=== PATIENT | male | born 1975 | race Caucasian/White ===

== ENCOUNTER 2024-05-30 06:19 | Observation (INO) | payer BC ==
[2024-05-24 14:00] VITALS: BMI 33.0
[2024-05-30] MEDS ORDERED: Thrombin 5000 UNITS/5 ML VIAL ONE (06:31)
[2024-05-30] MEDS ORDERED: Vancomycin 1 GM VIAL ONE (06:31)
[2024-05-30] MEDS ORDERED: PROPOFOL 20 ML ONE (06:53)
[2024-05-30] MEDS ORDERED: Lidocaine 1% PF 5 ML VIAL ONE (06:53)
[2024-05-30] MEDS ORDERED: fentaNYL PF 100 MCG/2 ML SYRINGE ONE (06:53)
[2024-05-30] MEDS ORDERED: Rocuronium Bromide 10 MG/ML (10ML VIAL) ONE (06:53)
[2024-05-30] MEDS ORDERED: CEFAZOLIN 2 GM VIAL ONE (07:15)
[2024-05-30] MEDS ORDERED: Sodium Chloride 0.9% 100 ML ONE (07:15)
[2024-05-30] MEDS ORDERED: Midazolam HCl 2 mg/2 ml Vial ONE (07:22)
[2024-05-30] MEDS ORDERED: Dexamethasone 20 MG/5 ML VIAL ONE (08:07)
[2024-05-30] MEDS ORDERED: ePHEDrine Sulfate 50 MG/10 ML VIAL ONE (08:18)
[2024-05-30] MEDS ORDERED: PHENYLEPHRINE-NS 100 MCG/ML 10 ML SYRINGE ONE (08:27)
[2024-05-30] MEDS ORDERED: PACU-Morphine 4MG/ML VIAL SLOW IVP PRN (08:48)
[2024-05-30] MEDS ORDERED: Promethazine HCl 25 MG/ML VIAL IM PRN (08:48)
[2024-05-30] MEDS ORDERED: Morphine Sulfate 2 MG/ML SYRINGE SLOW IVP PRN (08:48)
[2024-05-30] MEDS ORDERED: Ondansetron HCl/PF 4 MG/2 ML Vial IVP PRN (08:48)
[2024-05-30] MEDS ORDERED: HYDROmorphone 2 MG/ML VIAL SLOW IVP PRN (08:48)
[2024-05-30] MEDS ORDERED: Ondansetron PF 4 MG/2 ML Vial ONE (08:55)
[2024-05-30] MEDS ORDERED: SUGAMMADEX SODIUM 200 MG/2 ML VIAL ONE (09:00)
[2024-05-30] MEDS ORDERED: Lidocaine 2% PF 5 ML VIAL ONE (09:00)
[2024-05-30] MEDS ORDERED: HYDROmorphone 2 MG/ML VIAL ONE (09:04)
[2024-05-30] MEDS ORDERED: Milk Of Magnesia 30 ML UDCUP PO PRN (09:32)
[2024-05-30] MEDS ORDERED: Morphine 2 MG/ML VIAL SLOW IVP PRN (09:32)
[2024-05-30] MEDS ORDERED: diphenhydrAMINE 25 MG CAP PO PRN (09:32)
[2024-05-30] MEDS ORDERED: Acetaminophen 325 MG TAB PO PRN (09:32)
[2024-05-30] MEDS ORDERED: Ondansetron PF 4 MG/2 ML Vial IVP PRN (09:32)
[2024-05-30] MEDS ORDERED: traMADol HCl 50 MG TAB PO PRN (09:32)
[2024-05-30] MEDS ORDERED: hydrALAZINE 20 MG/ML VIAL SLOW IVP PRN (09:33)
[2024-05-30] MEDS ORDERED: Phenol 177 ML BOT PO PRN (09:33)
[2024-05-30] MEDS ORDERED: Diazepam 5 MG TAB PO PRN (09:33)
[2024-05-30] MEDS ORDERED: fentaNYL 50 mcg/mL 1 mL Vial ONE ×2 (10:06→10:25)
[2024-05-30] MEDS ORDERED: HYDROmorphone 0.5 MG/0.5 ML SYRINGE ONE (10:32)
[2024-05-30] MEDS: Sodium Chloride 0.9% 1,000 ML IV SCH (11:22)
[2024-05-30] MEDS: HYDROcodone/Acetaminophen 7.5/325 mg Tablet PO PRN (11:48)
[2024-05-30] MEDS: Polyvinyl Alcohol 1.4%/Povidone 0.6% Opth Drops EA EYE PRN (14:44)
[2024-05-30] MEDS: Acetaminophen/Codeine 30-300mg Tablet PO PRN (16:17)
[2024-05-30] MEDS: CEFAZOLIN 2 GM in Sodium Chloride 0.9% 100 ML IVPB SCH (16:18)
[2024-05-30] MEDS: Divalproex Sodium 250 MG (DR) TAB PO SCH (20:17)
[2024-05-30] MEDS: traZODone HCl 50 MG TAB PO SCH (20:17)
[2024-05-30] MEDS: Rosuvastatin 20 MG TAB PO SCH (20:17)
[2024-05-30] MEDS: tiZANidine HCl 4 MG TAB PO PRN (21:50)
[2024-05-30] MEDS: Benzocaine/Menthol 1 LOZ LOZ PO PRN (21:50)
[2024-05-31] MEDS ORDERED: Diazepam 5 MG TAB PO PRN (08:26)
[2024-05-31] MEDS ORDERED: Ketorolac Tromethamine 30 MG (1 mL) VIAL IVP PRN (08:29)
[2024-05-31] MEDS: Dexamethasone 4 mg/ml Vial SLOW IVP SCH (08:42)
[2024-05-31] MEDS: Ketorolac Tromethamine 30 MG (1 mL) VIAL IVP SCH (08:43)
[2024-05-31] MEDS: Diazepam 5 MG TAB PO SCH (08:44)
[2024-05-31] MEDS: Pantoprazole DR 40 MG TAB PO SCH (08:44)
[2024-05-31] MEDS: FLUoxetine HCl 20 MG CAP PO SCH (08:44)
[2024-05-31] MEDS: Ezetimibe 10 MG TAB PO SCH (08:45)
[2024-05-31] MEDS: Cyanocobalamin (Vitamin B-12) 1,000 MCG TAB PO SCH (08:45)
[2024-05-31] MEDS: CO Q-10 CAPSULE 100 MG PO SCH (08:45)
[2024-05-31] MEDS: Cholecalciferol 1,000 UNITS (25 MCG) TAB PO SCH (08:45)
[2024-05-31] MEDS: Ascorbic Acid 500 mg Chewable Tablet PO SCH (08:45)
[2024-05-31] MEDS: Magnesium Oxide 250 MG TAB PO SCH (08:45)
[2024-05-31 11:22] LABS: Bacteria/HPF None Seen HPF (None Seen); Bilirubin Negative (Negative); Blood, Urine Negative (Negative); CAUTI Indications for Culture Dysuria,urgency,freq; Clarity Clear (Clear); Glucose, Urine (Dipstick) Normal (Negative); Ketone, Urine Negative (Negative); Leukocyte Negative Leu/uL (Negative); Nitrite Negative (Negative); Protein, Urine (Dipstick) Negative (Neg-Trace); RBC/HPF 0-3 HPF (0-3); Specific Gravity, Urine 1.014 (1.002-1.036); Squamous Epithelial 0-3 HPF (0-3); Urobilinogen Normal mg/dL (Less than 2); WBC/HPF 0-3 HPF (0-3); pH, Urine 6.5 (5.0-9.0)
[2024-05-31 11:38] LABS: Urine Culture Reflex No No
[2024-05-31 12:22] VITALS: BP 118/70; TEMP 98.6
[2024-05-31] MEDS ORDERED: Dexamethasone 4 MG TAB PO SCH (15:00)
[2024-06-01] MEDS ORDERED: Pantoprazole DR 40 MG TAB PO SCH (09:00)
[2024-06-04] MEDS ORDERED: SEMAGLUTIDE 1 MG/0.5 ML SC SCH (09:00)
== END 2024-05-31 14:10 | disposition home or self-care (01) ==
LOC: SDC 06:19 → SJJU 11:00
PROVIDERS: ADMIT Surgery; ATTEND Surgery
PROC: 0RG10A0 Fusion of Cervical Vertebral Joint with Interbody Fusion Device, Anterior Approach, Anterior Column, Open Approach (ICD-10-PCS; principal; 2024-05-31)
PROC: 01N10ZZ Release Cervical Nerve, Open Approach (ICD-10-PCS; 2024-05-31)
DX: M50.01 Cervical disc disorder with myelopathy, high cervical region (principal); M48.02 Spinal stenosis, cervical region; M50.022 Cervical disc disorder at C5-C6 level with myelopathy; I48.91 Unspecified atrial fibrillation; G47.33 Obstructive sleep apnea (adult) (pediatric); E53.8 Deficiency of other specified B group vitamins; Z90.89 Acquired absence of other organs; Z98.84 Bariatric surgery status; Z87.891 Personal history of nicotine dependence; Z79.899 Other long term (current) drug therapy
CPT/HCPCS: 81001; C1713; J1100; J1170; J1885; J2001; J2250; J2405; J2704; J3010; J3370; J3490